=== PATIENT | male | born 1935 | race Two or more races ===

== ENCOUNTER 2017-10-24 09:59 | Outpatient (CLI) | payer OTHER ==
[~2017-10-24 09:59] MED LIST: ASPIR 8181 MG; LAMISIL250 MG; SIMVASTATIN20 MG; TAMSULOSIN HCL0.4 MG
== END 2017-10-24 10:15 | disposition home or self-care (01) ==
LOC: SONOGRAMA 09:59
DX: N40.0 Benign prostatic hyperplasia without lower urinary tract symptoms (principal); N20.0 Calculus of kidney

== ENCOUNTER → 2017-11-05 | Outpatient (CLI) | payer OTHER | END | disposition home or self-care (01) | LOC: LAB 16:55 | DX: R97.20 Elevated prostate specific antigen [PSA] (principal) ==

== ENCOUNTER 2017-11-24 12:26 | Outpatient (CLI) | payer OTHER | END 2017-11-24 12:27 | disposition home or self-care (01) | LOC: RAD 12:26 | DX: R05 Cough (principal) ==

== ENCOUNTER 2017-12-24 07:32 | Outpatient (CLI) | payer OTHER | END 2017-12-24 07:45 | disposition home or self-care (01) | LOC: SONOGRAMA 07:32 | DX: R97.20 Elevated prostate specific antigen [PSA] (principal) ==

== ENCOUNTER 2018-01-01 07:09 | Outpatient (CLI) | payer OTHER | END 2018-01-01 07:13 | disposition home or self-care (01) | LOC: TOM 07:09 | DX: C61 Malignant neoplasm of prostate (principal) ==

== ENCOUNTER 2018-01-06 09:11 | Outpatient (CLI) | payer OTHER | END 2018-01-06 10:00 | disposition home or self-care (01) | LOC: NUCLEAR 09:11 | DX: M81.0 Age-related osteoporosis without current pathological fracture (principal); N40.0 Benign prostatic hyperplasia without lower urinary tract symptoms; I25.10 Atherosclerotic heart disease of native coronary artery without angina pectoris; I11.9 Hypertensive heart disease without heart failure | CPT/HCPCS: 77080; 78306; 78320; 93005; A9503 ==

== ENCOUNTER 2018-03-02 08:43 | Outpatient (CLI) | payer OTHER ==
[~2018-03-02] VITALS: Ht 152.4 cm; Wt 56.7 kg
== END 2018-03-02 09:00 | disposition home or self-care (01) ==
LOC: OFIC 805 08:43
DX: H61.23 Impacted cerumen, bilateral (principal); H90.3 Sensorineural hearing loss, bilateral

== ENCOUNTER 2018-06-10 15:27 | Outpatient (CLI) | payer OTHER | END 2018-06-10 15:39 | disposition home or self-care (01) | LOC: RAD 501 15:27 | DX: M54.5 Low back pain (principal) ==

== ENCOUNTER 2019-07-15 09:55 | Outpatient (CLI) | payer OTHER | END 2019-07-15 14:19 | disposition home or self-care (01) | LOC: RAD 09:55 | DX: H25.011 Cortical age-related cataract, right eye (principal); Z98.41 Cataract extraction status, right eye ==

== ENCOUNTER 2020-02-10 09:19 | Outpatient (CLI) | payer OTHER | END 2020-02-10 10:00 | disposition home or self-care (01) | LOC: OFIC 805 09:19 | PROVIDERS: ATTEND Otolaryngology | DX: H90.3 Sensorineural hearing loss, bilateral (principal); H61.23 Impacted cerumen, bilateral ==

== ENCOUNTER 2020-08-08 07:04 | Outpatient (CLI) | payer OTHER | END 2020-08-08 07:12 | disposition home or self-care (01) | LOC: NUCLEAR 07:04 | PROVIDERS: ATTEND Internal Medicine Sports Medicine | DX: R07.89 Other chest pain (principal); I25.10 Atherosclerotic heart disease of native coronary artery without angina pectoris | CPT/HCPCS: 78452; 93017; A9500 ==